=== PATIENT | female | born 2000 | race Caucasian/White ===

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

== ENCOUNTER 2019-12-03 11:22 | Emergency (ER) | payer OTHER ==
[2019-12-03 11:41] VITALS: BP 120/60; PULSE 59
[2019-12-03] MEDS ORDERED: Diphtheria,Pertussis(Acell),Tetanus Vaccine 0.5 ML Syringe IM ONE (12:00)
--- NOTE | 2019-12-03 12:06 | EDM.PDOC ---
ED HPI GENERAL MEDICAL PROBLEM - General Chief Complaint: Laceration Stated Complaint: THUMB LAC Time Seen by Provider: 12/03/19 11:51 Source of Information: Reports: Patient History Limitations: Reports: No Limitations - History of Present Illness INITIAL COMMENTS - FREE TEXT/NARRATIVE: Patient is a 19-year-old female who presents to the ER with complaints of a laceration to her left thumb. Patient states she was cutting an orange and the knife slipped. She is unsure when her last tetanus vaccination. Left Finger-Thumb Pain Score (Numeric/FACES): 2 - Related Data Allergies Allergy/AdvReac Type Severity Reaction Status Date / Time No Known Allergies Allergy Verified 12/03/19 11:31 Home Meds: Home Meds . [No Known Home Meds] 12/03/19 [History] Past Medical History - Past Health History Medical/Surgical History: Denies Medical/Surgical History - Past Surgical History Other Musculoskeletal Surgeries/Procedures:: bunion surgey Social & Family History - Family History Family Medical History: Noncontributory - Tobacco Use Smoking Status *Q: Never Smoker - Caffeine Use Caffeine Use: Reports: Coffee - Recreational Drug Use Recreational Drug Use: No ED ROS GENERAL - Review of Systems Review Of Systems: Comprehensive ROS is negative, except as noted in HPI. ED EXAM, SKIN/RASH Exam: See Below Exam Limited By: No Limitations General Appearance: Alert, WD/WN, No Apparent Distress Respiratory/Chest: No Respiratory Distress, Lungs Clear, Normal Breath Sounds, No Accessory Muscle Use, Chest Non-Tender Cardiovascular: Normal Peripheral Pulses, Regular Rate, Rhythm, No Edema, No Gallop, No JVD, No Murmur, No Rub Neurological: Alert, Oriented, CN II-XII Intact, Normal Cognition, Normal Gait, Normal Reflexes, No Motor/Sensory Deficits Psychiatric: Normal Affect, Normal Mood Skin: Other (0.75 cm crescent laceration to the medial aspect of her left thumb. Wound superficial and not gaping. No active bleeding.) ED SKIN PROCEDURES - Laceration/Wound Repair Left Medial Digit - 1st (Thumb) Appearance: Superficial Distal NVT: Neuro & Vascular Intact Skin Prep: Chlorhexidine (Hibiciens), Saline Exploration/Debridement/Repair: Wound Explored Closed with: Wound Adhesive Lac/Wound length In cm: 0 (0.75 cm) Sterile Dressing Applied: Nurse Tetanus Status Addressed: Yes Complications: No Course - Vital Signs Last Recorded V/S: Last Vital Signs Temp 98.7 F 12/03/19 12:22 Pulse 59 L 12/03/19 11:32 Resp 13 12/03/19 11:32 BP 120/60 12/03/19 11:32 Pulse Ox 98 12/03/19 11:32 - Orders/Labs/Meds Orders: Active Orders 24 hr Category Date Time Status Vaccines to be Administered [RC] PER UNIT ROUTINE Care 12/03/19 12:00 Active Meds: Medications Discontinued Medications Generic Name Dose Route Start Last Admin Trade Name Siddhartha PRN Reason Stop Dose Admin Diphtheria/Tetanus/Acell Pertussis 0.5 ml 12/03/19 12:00 12/03/19 12:18 Adacel IM 12/03/19 12:01 0.5 ml .ONCE ONE Administration Departure - Departure Time of Disposition: 12:08 Disposition: Home, Self-Care 01 Condition: Good Clinical Impression: Laceration - Discharge Information *PRESCRIPTION DRUG MONITORING PROGRAM REVIEWED*: No *COPY OF PRESCRIPTION DRUG MONITORING REPORT IN PATIENT MARGE: No Instructions: Laceration Care, Adult, [id number], Sutures, [place], or Adhesive Wound Closure, [id number] Referrals: PCP,None [Primary Care Provider] - Forms: ED Department Discharge Additional Instructions: You were seen in the emergency department today for a laceration to your left thumb. The wound was cleansed and closed with glue. Recommend that you keep a Band-Aid over the area for the next 48 hours to prevent the glue from coming off prematurely. The glue should begin to fall off in about 3 days. Watch for signs of infection including increased redness, swelling, or purulent drainage. If these should occur would recommend that she have it checked by her primary care provider or return to the emergency department. You were updated on your tetanus vaccination today. This is good for 10 years. Sepsis Event Note - Evaluation Sepsis Screening Result: No Definite Risk - Focused Exam Vital Signs: Vital Signs Temp Pulse Resp BP Pulse Ox 12/03/19 12:22 98.7 F 12/03/19 11:32 99.6 F 59 L 13 120/60 98 Date Exam was Performed: 12/03/19 Time Exam was Performed: 14:21 - My Orders Last 24 Hours: My Active Orders 12/03/19 12:00 Vaccines to be Administered [RC] PER UNIT ROUTINE - Assessment/Plan Last 24 Hours: My Active Orders 12/03/19 12:00 Vaccines to be Administered [RC] PER UNIT ROUTINE
== END 2019-12-03 12:40 | disposition home or self-care (01) ==
LOC: JD.ED 11:22
DX: S61.012A Laceration without foreign body of left thumb without damage to nail, initial encounter (principal); Z23 Encounter for immunization; W26.0XXA Contact with knife, initial encounter
CPT/HCPCS: 12001; 90471; 90715; 99282; 99282-25

== ENCOUNTER 2020-05-26 07:16 | Emergency (ER) | payer OTHER ==
--- NOTE | 2020-05-26 08:09 | EDM.PDOC ---
ED HPI GENERAL MEDICAL PROBLEM - General Chief Complaint: ENT Problem Stated Complaint: L EAR BLEEDING/BLOCKED Time Seen by Provider: 05/26/20 07:31 Source of Information: Reports: Patient, RN Notes Reviewed - History of Present Illness INITIAL COMMENTS - FREE TEXT/NARRATIVE: L ear has been feeling "plugged off and on for weeks" Started draining blood tinged fluid during the night. Not otherwise ill in any way. - Related Data Allergies Allergy/AdvReac Type Severity Reaction Status Date / Time No Known Allergies Allergy Verified 05/26/20 07:26 Home Meds: Home Meds Amoxicillin/Potassium Clav [Augmentin 500-125 Tablet] 1 each PO Q12HR #14 tablet 05/26/20 [Rx] Past Medical History - Past Health History Medical/Surgical History: Denies Medical/Surgical History HEENT History: Reports: Impaired Vision, Otitis Media - Past Surgical History Other Musculoskeletal Surgeries/Procedures:: bunion surgey Social & Family History - Family History Family Medical History: Noncontributory - Tobacco Use Smoking Status *Q: Never Smoker - Caffeine Use Caffeine Use: Reports: Coffee - Recreational Drug Use Recreational Drug Use: No ED ROS ENT - Review of Systems Review Of Systems: See Below Constitutional: Denies: Fever, Chills HEENT: Reports: Ear Discharge. Denies: Ear Pain, Rhinitis, Sinus Problem, Throat Pain, Vertigo Respiratory: Denies: Cough Cardiovascular: Reports: No Symptoms GI/Abdominal: Reports: No Symptoms Musculoskeletal: Reports: No Symptoms Skin: Reports: No Symptoms Neurological: Reports: No Symptoms ED EXAM, ENT - Physical Exam Exam: See Below General Appearance: Alert, No Apparent Distress Ears: Other (clear roche fluid base of L ear canal, mild swelling of canal, TM moderately inflamed, external ear and around canal completely nontender) Nose: Normal Inspection Head: Atraumatic Neck: Normal Inspection, Supple, Non-Tender. No: Lymphadenopathy (L), Lymphadenopathy (R) Respiratory/Chest: No Respiratory Distress Extremities: Normal Inspection Neurological: Alert, Oriented, No Motor/Sensory Deficits Skin: Warm, Dry, Normal Color, No Rash Course - Vital Signs Last Recorded V/S: Last Vital Signs Temp 97.6 F 05/26/20 08:21 Pulse 67 05/26/20 08:21 Resp 18 05/26/20 08:21 BP 96/62 05/26/20 08:21 Pulse Ox 98 05/26/20 08:21 Departure - Departure Time of Disposition: 08:10 Disposition: Home, Self-Care 01 Condition: Fair Clinical Impression: Otitis media Qualifiers: Otitis media type: unspecified Chronicity: acute Qualified Code(s): H66.90 - Otitis media, unspecified, unspecified ear External otitis of left ear Qualifiers: Otitis externa type: unspecified type Chronicity: acute Qualified Code(s): H60.502 - Unspecified acute noninfective otitis externa, left ear - Discharge Information Prescriptions: Amoxicillin/Potassium Clav [Augmentin 500-125 Tablet] 1 each PO Q12HR #14 tablet Instructions: Otitis Media, Adult, [id number] Referrals: PCP,None [Primary Care Provider] - Forms: ED Department Discharge Additional Instructions: Augmentin 875 mg twice daily for 1 week or until gone. [facility] Cipro Opthalmic soln., 2 drops L ear 4 times daily for 1 week. Follow up clinic if symptoms not resolving as expected. Sepsis Event Note (ED) - Evaluation Sepsis Screening Result: No Definite Risk - Focused Exam Vital Signs: Vital Signs Temp Pulse Resp BP Pulse Ox 05/26/20 08:21 97.6 F 67 18 96/62 98 05/26/20 07:23 97.5 F 76 16 105/67 100
[2020-05-26 08:30] VITALS: BP 96/62; PULSE 67
== END 2020-05-26 08:21 | disposition home or self-care (01) ==
LOC: JD.ED 07:16
DX: H66.92 Otitis media, unspecified, left ear (principal); H60.502 Unspecified acute noninfective otitis externa, left ear
CPT/HCPCS: 99282; 99283